=== PATIENT | female | born 1965 | race Caucasian/White ===

== ENCOUNTER → 2022-01-31 | Day surgery (SDC) | payer BC | END | disposition home or self-care (01) | LOC: BICULT 12:30 | PROVIDERS: ATTEND Nurse Practitioner Family | PROC: 0HBU3ZX Excision of Left Breast, Percutaneous Approach, Diagnostic (ICD-10-PCS; principal; 2022-01-31) | DX: C50.212 Malignant neoplasm of upper-inner quadrant of left female breast (principal); Z17.0 Estrogen receptor positive status [ER+] | CPT/HCPCS: 19083; 88305; 88342 ==